=== PATIENT | female | born 2005 | race Caucasian/White ===

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

== ENCOUNTER → 2023-01-10 | Outpatient (CLI) | payer OTHER ==
[~2023-01-10] MED LIST changes: +AMLODIPINE BESY10 MG PO; +LISINOPRIL2.5 MG PO
[2023-01-10 19:16] LABS: Percent Saturation 5.9 % (15.0-50.0)
[2023-01-15 14:08] LABS: 1 HR INCUB PT 1:1NP 12.8 sec (9.1-12.0); PT 1:1NP 12.4 sec (9.1-12.0)
== END | disposition home or self-care (01) ==
LOC: LAB SHORT 12:57 → LAB 12:57
PROVIDERS: Internal Medicine Hematology & Oncology
DX: D68.61 Antiphospholipid syndrome (principal); D50.0 Iron deficiency anemia secondary to blood loss (chronic); Z86.718 Personal history of other venous thrombosis and embolism
CPT/HCPCS: 82607; 82728; 83540; 83550; 85610; 85611

== ENCOUNTER 2023-02-21 01:30 | Emergency (ER) | payer OTHER ==
[~2023-02-21] VITALS: Ht 167.6 cm; Wt 113.8 kg
[2023-02-21 02:19] LABS: Source, Urine Clean Catch
[2023-02-21 02:32] LABS: BASOPHILS ABSOLUTE AUTO 0.03 K/mm3 (0.00-0.23); BASOPHILS PERCENT AUTO 0 % (0-2); EOSINOPHILS ABSOLUTE AUTO 0.32 K/mm3 (0.00-0.68); EOSINOPHILS PERCENT AUTO 4 % (0-6); Hematocrit 36.8 % (33.0-51.0); Hemoglobin 11.8 g/dL (11.5-16.0); IMMATURE GRAN ABSOLUTE AUTO 0.03 K/mm3 (0.00-0.10); IMMATURE GRAN PERCENT AUTO 0 % (0-1); LYMPHOCYTES ABSOLUTE AUTO 3.51 K/mm3 (0.84-5.20); LYMPHOCYTES PERCENT AUTO 39 % (21-46); MONOCYTES ABSOLUTE AUTO 0.75 K/mm3 (0.16-1.47); MONOCYTES PERCENT AUTO 8 % (4-13); Mean Corpuscular HGB 23.3 pg (26.0-34.0); Mean Corpuscular HGB Conc 32.1 g/dL (31.5-36.5); Mean Corpuscular Volume 73 fL (80-100); Mean Platelet Volume 9.6 fL (9.1-12.4); NEUTROPHILS ABSOLUTE AUTO 4.41 K/mm3 (1.96-9.15); NEUTROPHILS PERCENT AUTO 49 % (41-73); Platelet Count 209 K/mm3 (150-400); RDW Coefficient Variation 14.4 % (11.7-14.2); RDW Standard Deviation 37.4 fL (35.1-46.3); Red Blood Cell Count 5.06 M/mm3 (3.80-5.20); White Blood Cell Count 9.05 K/mm3 (4.00-11.30)
[2023-02-21 02:46] LABS: Bilirubin, Urine Neg (Neg); Blood, Urine 1+ (Neg); Glucose Qualitative, Urine Neg (Neg); Ketones, Urine Neg (Neg); Leukocyte Esterase, Urine Neg (Neg); Nitrite, Urine Neg (Neg); Protein, Urine 3+ (Neg); Specific Gravity, Urine 1.025 (1.003-1.022); Urobilinogen, Urine NORM (Normal)
[2023-02-21 02:49] LABS: Albumin, Blood 3.4 g/dL (3.4-5.0); Albumin/Globulin Ratio 0.8 (0.8-1.8); Bilirubin, Total 0.2 mg/dL (0.1-1.0); Bun/Creatinine Ratio 24.5 (12.0-20.0); Calcium, Blood 8.5 mg/dL (8.5-10.1); Creatinine, Blood 1.1 mg/dL (0.40-1.00); Globulin, Blood 4.2 g/dL (2.2-4.0); Potassium, Blood 4.3 mmol/L (3.5-5.5); Total Protein, Blood 7.6 g/dL (6.4-8.2)
[2023-02-21 02:50] LABS: International Normalized Ratio 2.18; Prothrombin Time Results 21.9 Sec (9.7-11.5)
[2023-02-21 03:05] LABS: Appearance, Urine Clear (Clear); Color, Urine Yellow (P-Yellow)
[2023-02-21 03:06] LABS: Bacteria Few /hpf; Red Blood Cells, Urine 0-2 /hpf (0-2); Squamous Epithelial Cells Mod /hpf (Few); White Blood Cells, Urine 0-2 /hpf (0-5)
[2023-02-21 03:30] VITALS: BP 151/85
[2023-02-21] MEDS ORDERED: Pepcid40 MG PO (03:30)
== END 2023-02-21 03:37 | disposition home or self-care (01) ==
LOC: ER 01:30
PROVIDERS: Emergency Medicine
DX: R10.13 Epigastric pain (principal); Z79.899 Other long term (current) drug therapy
CPT/HCPCS: 80053; 81001; 81025; 85025; 85610; 87086; 99284-25

== ENCOUNTER 2023-04-27 13:00 | Emergency (ER) | payer OTHER ==
[~2023-04-27] VITALS: Ht 165.1 cm; Wt 113.8 kg
[~2023-04-27 13:00] MED LIST changes: +Pepcid40 MG PO
[2023-04-27 14:16] LABS: BASOPHILS ABSOLUTE AUTO 0.04 K/mm3 (0.00-0.23); BASOPHILS PERCENT AUTO 1 % (0-2); EOSINOPHILS ABSOLUTE AUTO 0.37 K/mm3 (0.00-0.68); EOSINOPHILS PERCENT AUTO 5 % (0-6); Hematocrit 39.3 % (33.0-51.0); Hemoglobin 12.7 g/dL (11.5-16.0); IMMATURE GRAN ABSOLUTE AUTO 0.01 K/mm3 (0.00-0.10); IMMATURE GRAN PERCENT AUTO 0 % (0-1); LYMPHOCYTES ABSOLUTE AUTO 2.61 K/mm3 (0.84-5.20); LYMPHOCYTES PERCENT AUTO 32 % (21-46); MONOCYTES ABSOLUTE AUTO 0.61 K/mm3 (0.16-1.47); MONOCYTES PERCENT AUTO 7 % (4-13); Mean Corpuscular HGB 23.6 pg (26.0-34.0); Mean Corpuscular HGB Conc 32.3 g/dL (31.5-36.5); Mean Corpuscular Volume 73 fL (80-100); Mean Platelet Volume 9.9 fL (9.1-12.4); NEUTROPHILS ABSOLUTE AUTO 4.62 K/mm3 (1.96-9.15); NEUTROPHILS PERCENT AUTO 56 % (41-73); Platelet Count 215 K/mm3 (150-400); RDW Coefficient Variation 14.7 % (11.7-14.2); RDW Standard Deviation 38.4 fL (35.1-46.3); Red Blood Cell Count 5.39 M/mm3 (3.80-5.20); White Blood Cell Count 8.26 K/mm3 (4.00-11.30)
[2023-04-27 14:31] LABS: International Normalized Ratio 2.91; Prothrombin Time Results 28.8 Sec (9.7-11.5)
[2023-04-27 14:35] LABS: Albumin, Blood 3.8 g/dL (3.4-5.0); Albumin/Globulin Ratio 0.9 (0.8-1.8); Bilirubin, Total 0.2 mg/dL (0.1-1.0); Bun/Creatinine Ratio 23.6 (12.0-20.0); Creatinine, Blood 1.1 mg/dL (0.40-1.00); Globulin, Blood 4.4 g/dL (2.2-4.0); Potassium, Blood 4.2 mmol/L (3.5-5.5); Total Protein, Blood 8.2 g/dL (6.4-8.2)
[2023-04-27 15:24] VITALS: BP 125/76
== END 2023-04-27 17:57 | disposition home or self-care (01) ==
LOC: ER 13:00
PROVIDERS: Physician Assistant
DX: H53.8 Other visual disturbances (principal); Z79.899 Other long term (current) drug therapy; Z79.01 Long term (current) use of anticoagulants
CPT/HCPCS: 80053; 85025; 85610; 85730; 99283